=== PATIENT | male | born 1990 | race Caucasian/White ===

== ENCOUNTER 2020-05-19 14:11 | Emergency (ER) | payer OTHER ==
[~2020-05-19] VITALS: Ht 175.3 cm; Wt 88.5 kg
[2020-05-19 14:24] VITALS: BP 133/75
== END 2020-05-19 14:32 | disposition home or self-care (01) ==
LOC: ER 14:11
DX: Z11.59 Encounter for screening for other viral diseases (principal)
CPT/HCPCS: 99283; C9803; U0003

== ENCOUNTER 2020-05-29 13:45 | Emergency (ER) | payer OTHER ==
[~2020-05-29] VITALS: Ht 175.3 cm; Wt 88.5 kg
[2020-05-29 13:51] VITALS: BP 132/72
== END 2020-05-29 14:11 | disposition home or self-care (01) ==
LOC: ER 13:46
DX: Z03.818 Encounter for observation for suspected exposure to other biological agents ruled out (principal)
CPT/HCPCS: 99283; C9803; U0003

== ENCOUNTER 2020-06-04 13:35 | Emergency (ER) | payer OTHER ==
[~2020-06-04] VITALS: Ht 175.3 cm; Wt 86.2 kg
[2020-06-04 14:43] VITALS: BP 135/80
== END 2020-06-04 14:55 | disposition home or self-care (01) ==
LOC: ER 13:39
DX: Z03.818 Encounter for observation for suspected exposure to other biological agents ruled out (principal)
CPT/HCPCS: 99283; C9803; U0003

== ENCOUNTER 2020-06-12 14:17 | Emergency (ER) | payer OTHER ==
[~2020-06-12] VITALS: Ht 175.3 cm; Wt 83.9 kg
[2020-06-12 14:20] VITALS: BP 128/77
== END 2020-06-12 14:35 | disposition home or self-care (01) ==
LOC: ER 14:18
DX: Z03.818 Encounter for observation for suspected exposure to other biological agents ruled out (principal)
CPT/HCPCS: 99283; C9803; U0003

== ENCOUNTER 2020-06-19 14:22 | Emergency (ER) | payer OTHER ==
[~2020-06-19] VITALS: Ht 175.3 cm; Wt 88.5 kg
[2020-06-19 14:24] VITALS: BP 128/77
== END 2020-06-19 15:04 | disposition home or self-care (01) ==
LOC: ER 14:23
DX: Z11.59 Encounter for screening for other viral diseases (principal); Z91.013 Allergy to seafood
CPT/HCPCS: 99283; C9803; U0003

== ENCOUNTER 2020-06-26 14:06 | Emergency (ER) | payer OTHER ==
[~2020-06-26] VITALS: Ht 175.3 cm; Wt 88.5 kg
[2020-06-26 14:07] VITALS: BP 126/84
--- NOTE | 2020-06-26 14:45 | NUR ---
COVID SWAB DONE AND SENT TO LAB
--- NOTE | 2020-06-26 14:45 | NUR ---
Patient discharged to home in stable condition. Written and verbal after care instructions given. Patient verbalizes understanding of instruction. Pt ambulatory with a steady gait
== END 2020-06-26 14:47 | disposition home or self-care (01) ==
LOC: ER 14:07
DX: Z11.59 Encounter for screening for other viral diseases (principal); Z91.013 Allergy to seafood
CPT/HCPCS: 99283; C9803; U0003

== ENCOUNTER 2020-07-03 14:34 | Emergency (ER) | payer OTHER ==
[~2020-07-03] VITALS: Ht 167.6 cm; Wt 72.6 kg
[2020-07-03 14:39] VITALS: BP 150/92
== END 2020-07-03 15:17 | disposition home or self-care (01) ==
LOC: ER 14:36
DX: Z20.828 Contact with and (suspected) exposure to other viral communicable diseases (principal); Z91.013 Allergy to seafood
CPT/HCPCS: 99283; C9803; U0003

== ENCOUNTER 2020-07-15 14:23 | Emergency (ER) | payer OTHER ==
[~2020-07-15] VITALS: Ht 175.3 cm; Wt 88.5 kg
[2020-07-15 14:28] VITALS: BP 131/78
--- NOTE | 2020-07-15 14:51 | NUR ---
COVID SWAB SENT
== END 2020-07-15 14:52 | disposition home or self-care (01) ==
LOC: ER 14:23
DX: Z20.828 Contact with and (suspected) exposure to other viral communicable diseases (principal); Z91.013 Allergy to seafood
CPT/HCPCS: 99283; C9803; U0003

== ENCOUNTER 2020-07-24 13:48 | Emergency (ER) | payer OTHER ==
[~2020-07-24] VITALS: Ht 175.3 cm; Wt 88.5 kg
[2020-07-24 13:53] VITALS: BP 122/81
--- NOTE | 2020-07-24 14:11 | NUR ---
COVID SWAB SENT
== END 2020-07-24 14:44 | disposition home or self-care (01) ==
LOC: ER 13:49
DX: Z20.828 Contact with and (suspected) exposure to other viral communicable diseases (principal); Z91.013 Allergy to seafood; Z91.048 Other nonmedicinal substance allergy status
CPT/HCPCS: 99283; C9803; U0003

== ENCOUNTER 2020-08-14 14:40 | Emergency (ER) | payer OTHER ==
[~2020-08-14] VITALS: Ht 172.7 cm; Wt 90.7 kg
[2020-08-14 15:00] VITALS: BP 134/81
== END 2020-08-14 15:15 | disposition home or self-care (01) ==
LOC: ER 14:41
DX: Z20.828 Contact with and (suspected) exposure to other viral communicable diseases (principal); Z91.013 Allergy to seafood
CPT/HCPCS: 99283; C9803; U0003

== ENCOUNTER 2020-08-19 14:28 | Emergency (ER) | payer OTHER ==
[~2020-08-19] VITALS: Ht 175.3 cm; Wt 87.1 kg
[2020-08-19 14:30] VITALS: BP 128/74
== END 2020-08-19 15:10 | disposition home or self-care (01) ==
LOC: ER 14:28
DX: Z20.828 Contact with and (suspected) exposure to other viral communicable diseases (principal); Z91.013 Allergy to seafood
CPT/HCPCS: 99283; C9803; U0003

== ENCOUNTER 2020-08-26 14:18 | Emergency (ER) | payer OTHER ==
--- NOTE | 2020-08-26 14:33 | NUR ---
COVID SWAB COLLECTED AND SENT TO LAB
== END 2020-08-26 14:34 | disposition home or self-care (01) ==
LOC: ER 14:19
DX: Z20.828 Contact with and (suspected) exposure to other viral communicable diseases (principal); Z91.013 Allergy to seafood
CPT/HCPCS: 99283; C9803; U0003

== ENCOUNTER 2020-09-04 14:05 | Emergency (ER) | payer OTHER ==
[~2020-09-04] VITALS: Ht 175.3 cm; Wt 83.9 kg
[2020-09-04 14:05] VITALS: BP 128/65
== END 2020-09-04 14:36 | disposition home or self-care (01) ==
LOC: ER 14:06
DX: Z20.828 Contact with and (suspected) exposure to other viral communicable diseases (principal); Z91.013 Allergy to seafood
CPT/HCPCS: 99283; C9803; U0003

== ENCOUNTER 2020-09-11 14:51 | Emergency (ER) | payer OTHER ==
[~2020-09-11] VITALS: Ht 175.3 cm; Wt 83.9 kg
[2020-09-11 14:59] VITALS: BP 117/66
== END 2020-09-11 15:18 | disposition home or self-care (01) ==
LOC: ER 14:53
DX: Z20.828 Contact with and (suspected) exposure to other viral communicable diseases (principal); Z91.013 Allergy to seafood
CPT/HCPCS: 99283; C9803; U0003

== ENCOUNTER 2020-09-18 15:28 | Emergency (ER) | payer OTHER ==
[~2020-09-18] VITALS: Ht 175.3 cm; Wt 84.4 kg
[2020-09-18 15:36] VITALS: BP 128/72
== END 2020-09-18 16:04 | disposition home or self-care (01) ==
LOC: ER 15:30
DX: Z20.828 Contact with and (suspected) exposure to other viral communicable diseases (principal)
CPT/HCPCS: 99283; C9803; U0003

== ENCOUNTER 2020-09-25 15:37 | Emergency (ER) | payer OTHER ==
[~2020-09-25] VITALS: Ht 175.3 cm; Wt 81.6 kg
[2020-09-25 15:42] VITALS: BP 123/79
--- NOTE | 2020-09-25 16:00 | NUR ---
COVID SWAB SENT. Patient discharged to home in stable condition. Written and verbal after care instructions given. Patient verbalizes understanding of instruction.
== END 2020-09-25 16:02 | disposition home or self-care (01) ==
LOC: ER 15:39
DX: Z20.828 Contact with and (suspected) exposure to other viral communicable diseases (principal); Z91.013 Allergy to seafood
CPT/HCPCS: 99283; U0003; C9803

== ENCOUNTER 2020-10-02 14:06 | Emergency (ER) | payer OTHER ==
[~2020-10-02] VITALS: Ht 175.3 cm; Wt 83.9 kg
[2020-10-02 14:13] VITALS: BP 129/78
== END 2020-10-02 14:48 | disposition home or self-care (01) ==
LOC: ER 14:07
DX: Z20.828 Contact with and (suspected) exposure to other viral communicable diseases (principal); Z91.013 Allergy to seafood
CPT/HCPCS: 99283; C9803; U0003

== ENCOUNTER 2020-10-09 14:28 | Emergency (ER) | payer OTHER ==
[~2020-10-09] VITALS: Ht 175.3 cm; Wt 83.9 kg
[2020-10-09 14:30] VITALS: BP 130/80
== END 2020-10-09 14:53 | disposition home or self-care (01) ==
LOC: ER 14:31
DX: Z20.828 Contact with and (suspected) exposure to other viral communicable diseases (principal); Z91.013 Allergy to seafood
CPT/HCPCS: 99283; C9803; U0003

== ENCOUNTER 2020-10-23 14:38 | Emergency (ER) | payer OTHER ==
[~2020-10-23] VITALS: Ht 175.3 cm; Wt 81.6 kg
[2020-10-23 14:41] VITALS: BP 126/75
--- NOTE | 2020-10-23 15:20 | NUR ---
COVID TEST DONE & SENT TO LAB.
== END 2020-10-23 15:21 | disposition home or self-care (01) ==
LOC: ER 14:39
DX: Z20.828 Contact with and (suspected) exposure to other viral communicable diseases (principal); Z91.013 Allergy to seafood
CPT/HCPCS: 99283; C9803; U0003

== ENCOUNTER 2020-10-30 07:58 | Emergency (ER) | payer OTHER ==
[~2020-10-30] VITALS: Ht 175.3 cm; Wt 81.2 kg
[2020-10-30 08:11] VITALS: BP 117/69
== END 2020-10-30 08:37 | disposition home or self-care (01) ==
LOC: ER 07:58
DX: Z20.828 Contact with and (suspected) exposure to other viral communicable diseases (principal); Z91.013 Allergy to seafood
CPT/HCPCS: 99283; C9803; U0003

== ENCOUNTER 2020-11-06 11:22 | Emergency (ER) | payer OTHER ==
[~2020-11-06] VITALS: Ht 175.3 cm; Wt 80.3 kg
[2020-11-06 11:26] VITALS: BP 128/74
== END 2020-11-06 11:45 | disposition home or self-care (01) ==
LOC: ER 11:38
DX: Z20.828 Contact with and (suspected) exposure to other viral communicable diseases (principal); Z91.013 Allergy to seafood; Z91.048 Other nonmedicinal substance allergy status
CPT/HCPCS: 99283; C9803; U0003

== ENCOUNTER 2020-11-11 13:37 | Emergency (ER) | payer OTHER ==
[~2020-11-11] VITALS: Ht 175.3 cm; Wt 81.6 kg
[2020-11-11 13:45] VITALS: BP 128/67
--- NOTE | 2020-11-11 14:07 | NUR ---
COVID SWAB SENT. Patient discharged to home in stable condition. Written and verbal after care instructions given. Patient verbalizes understanding of instruction.
== END 2020-11-11 14:07 | disposition home or self-care (01) ==
LOC: ER 13:40
DX: Z20.828 Contact with and (suspected) exposure to other viral communicable diseases (principal); Z91.013 Allergy to seafood
CPT/HCPCS: 99283; C9803; U0003